=== PATIENT | male | born 1970 | race Caucasian/White ===

== ENCOUNTER 2017-10-27 20:42 | Emergency (ER) | payer BC ==
[2017-10-27 21:18] VITALS: BMI 39.9
--- NOTE | 2017-10-27 22:34 | DR.GENAD ---
HPI - PCP Primary Care Physician: JEREMY - HPI Comment HPI Comment: RUNNING FEVER WELL. - Complaint/Symptoms Chief Complaint Doctors Comments: COUGH, CONGESTION, EARACHE, SORE THROAT AND HEADACHE TIMES 2 DAYS. Chief Complaint:: C/C/C FOR SEVERAL DAYS FEVER AND CHILLS SORE THROAT EAR PAIN - Nurses notes reviewed Nurses Notes Review: Yes - Source History Provided: Patient - Mode of Arrival Mode of Arrival: Ambulatory - Timing Onset of Chief Complaint: 10/25/17 Came on: Suddenly - Duration Duration: Constant Duration: Days - Severity Severity: Moderate PMH - PMH Past Medical History: Yes Past Medical History: Hypertension, Kidney Stones Past Surgical History: Yes Surgical History: Lithotripsy - Family History History of Family Medical Conditions: Yes Family Medical History: Diabetes Mellitus, Hypertension - Social History Does patient currently use any type of tobacco product: Yes Have you used tobacco products in the last 12 months: Yes Type of Tobacco Use: Smokeless Does any household member use tobacco: No Alcohol Use: None Do you use any recreational Drugs:: No Lives With: Family Lives Where: Home - infectious screening In the last 2 months have you had wt loss of >10#?: NO Have you had fever, night sweats or hemotysis?: No Have you traveled outside the country in the last 6 months?: No Isolation: Standard ROS - Review of Systems Constitutional: Fever, Weakness, Fatigue Eyes: negative: Eye Pain, Discharge ENTM: Ear Pain, Nose Discharge, Nose Congestion, Throat Pain Respiratoy: Productive Cough, Short of Breath. negative: Wheezing, Hemoptysis Cardiovascular: Chest Pain Gastrointestinal/Abdominal: negative: Abdominal Pain, Diarrhea, Nausea Genitourinary: negative: Dysuria, Frequency, Hematuria Neurological: Headache, Weakness, Dizziness Musculoskeletal: Muscle Pain Integumentary: No Symptoms Reported Hematologic/Lymphatic: No Symptoms Reported Endocrine: No Symptoms Reported All Other Systems: Reviewed and Negative PE - Vital Signs Vitals: Temperature 98.7 F Pulse Rate [Left Radial] 72 Pulse Rate 75 Respiratory Rate 18 Blood Pressure [Left Arm] 149/90 Blood Pressure 156/94 O2 Sat by Pulse Oximetry 98 - General Limitations: No Limitations General Appearance: Alert - Head Head Exam: Normal Inspection - Eyes Eye exam: Normal Appearance. negative: Scleral Icterus, Conjunctival Injection - ENT ENT Exam: Normal External Ear Exam External Ear Exam: Normal External Inspection TM/Canal Exam: Bilateral Normal Nose Exam: Normal Nose Exam Mouth Exam: Normal Inspection Throat Exam: Tonsillar Erythema - Neck Neck Exam: Trachea Midline - Chest Chest Inspection: Symmetric Chest Wall Rise - Respiratory Respiratory Exam: Normal Lung Sounds Bilat Respiratory Exam: Bilateral Rhonchi, Upper Rhonchi, Lower Rhonchi - Cardiovascular Cardiovascular Exam: Regular Rate, Normal Rhythm, Normal Heart Sounds - Abdominal Exam Abdominal Exam: Normal Bowel Sounds, Soft, Tenderness - Extremities Extremities Exam: Normal Inspection - Back Back Exam: Normal Inspection - Neurologic Neurological Exam: Alert, Oriented X3 - Psychiatric Psychiatric Exam: Normal Affect, Normal Mood - Skin Skin Exam: Normal Color MDM - Additional Information Additional Information Obtained From: Family - Differential Diagnosis Differential Diagnosis: PNEUMONIA, BRONCHITIS, SINUSITIS, STREP PHARYNGITIS Course - Treatment Treatment: SEE ORDERS. - Education/Counseling Education/Counseling: Patient, Family, Education Educated On: Treatment, Diagnosis, Needs for Follow Up ROR - Labs Reviewed Laboratory Results Reviewed?: Yes Laboratory: Influenza Type A (PCR) Negative (NEGATIVE) 10/27/17 23:37 Influenza Type B (PCR) Negative (NEGATIVE) 10/27/17 23:37 Streptococcus Screen Negative (NEGATIVE) 10/27/17 23:37 - XRAY XRAY Interpreted by: Radiologist XRAY Findings: REPORT DISCUSS WITH PATIENT. - Diagnosis Discharge Problem: Bronchitis - Discharge Plan Disposition: 01 HOME, SELF-CARE Condition: Stable Prescriptions: Azithromycin [ZITHROMAX Tab 250 mg *] 1 dose PO DAILY #6 tab Hydrocodone Polist/Chlorphenir [Tussionex Pennkinetic Susp] 5 ml PO Q12H PRN # 60 ml PRN Reason: Cough - Follow ups/Referrals Follow ups/Referrals: DIANE LUNA [Primary Care Provider] - 3 days - Instructions Instructions: Acute Bronchitis, [id number] Additional Instructions: RETURN TO ED IF WORSE.
--- NOTE | 2017-10-28 00:37 | RAD ---
PA and lateral chest Indication: Flu like symptoms Findings: Heart size is normal. Lungs are clear. No pleural effusion or pneumothorax. Trachea is midl ine. No acute osseous abnormality. Impression: No acute cardiopulmonary abnormality. Reported By:
[2017-10-28] MEDS ORDERED: TUSSIONEX PENNKINETIC SUSP PO ONE (00:44)
[2017-10-28] MEDS ORDERED: ZITHROMAX TAB 250 MG PO ONE ×2 (00:45→00:49)
[2017-10-28] MEDS ORDERED: TUSSIONEX PENNKINETIC SUSP ONE (00:49)
[2017-10-28 00:53] VITALS: BP 149/90
== END 2017-10-28 00:52 | disposition home or self-care (01) ==
LOC: ER 20:42
DX: J40 Bronchitis, not specified as acute or chronic (principal)
CPT/HCPCS: 71020; 87070; 87502; 87880; 99282; 99284; Q0144